=== PATIENT | male | born 1940 | race Caucasian/White ===

== ENCOUNTER → 2018-07-02 | Outpatient (CLI) | payer MEDICARE, BC ==
[2016-12-26 12:50] VITALS: BP 100/62
[~2018-07-02] MED LIST: ALEN70TA3 PO; ASCO500T2 PO; ATOR20TA PO; CRAN500C6 PO; GLUC1TAB69 PO; MULT1TAB52 PO; OMEP20CA9 PO; TEST2.5G5 TD
--- NOTE | 2018-07-02 13:49 | RAD ---
Bilateral knees, 6 views, 07/02/2018: HISTORY: Knee pain AP standing and views of both knees as well as lateral and tangential patellar views were obtained as requested. There is marked narrowing of the knee joint spaces medially with subchondral sclerosis and mild marginal spurring. There is moderate degenerative change at the patellofemoral articulations, worse on the left. No fracture or dislocation is identified. There is a suggestion of a small left joint effusion. Moderate arterial calcifications are present. IMPRESSION: 1. Moderately severe bilateral degenerative changes with dominant involvement of the medial compartments of both knee joints. 2. No acute bony abnormality is detected. Electronically signed by: Larry Zamarripa MD (07/02/2018 1:45 PM) [facility]
== END | disposition home or self-care (01) ==
LOC: DXRAD 13:06
PROVIDERS: ATTEND Orthopaedic Surgery Sports Medicine
DX: M17.0 Bilateral primary osteoarthritis of knee (principal); I10 Essential (primary) hypertension; E78.5 Hyperlipidemia, unspecified; E78.00 Pure hypercholesterolemia, unspecified; I95.9 Hypotension, unspecified; Z90.49 Acquired absence of other specified parts of digestive tract
CPT/HCPCS: 73562

== ENCOUNTER → 2018-12-19 | Outpatient (CLI) | payer MEDICARE, BC ==
[2016-12-26 12:50] VITALS: BP 100/62
[~2018-12-19] MED LIST changes: +IOHEXOL 240 MG/ML 50ML VIAL. ONE; +IOHEXOL 300 MG/ML 75 ML VIAL. IV ONE
[2018-12-19 14:52] LABS: CREATININE 1.2 mg/dL (0.7-1.3); GFR 58.6
--- NOTE | 2018-12-19 16:23 | RAD ---
CT of the abdomen and pelvis with contrast, 12/19/2018: HISTORY: Right-sided abdominal pain Multidetector CT imaging was performed following oral and IV administration of contrast. There is mild linear scarring and/or atelectasis in the lung bases. The gallbladder is surgically absent. No hepatic abnormality is seen. The pancreas is unremarkable. The spleen is of normal size. There is a tiny nonobstructing intrarenal calculus on the right. There is a small cyst in the lower pole of the left kidney. There is a probable cyst in the lower pole the right kidney, however, it is too small to definitively characterize. The kidneys show no evidence of obstruction. Moderate aortoiliac calcific plaquing is present. No abdominal or pelvic adenopathy is seen. The prostate gland is at the upper limits of normal in size. Mild diffuse bladder wall thickening is unchanged since previous study and probably reflects some degree of chronic bladder outlet obstruction. The bowel loops are not dilated. Both inguinal rings are dilated, right greater than left. They both contain fat. No bowel herniation is evident. No free fluid or free air is evident in the abdomen or pelvis. There are moderate multilevel degenerative changes in the spine. There is a slight anterolisthesis at L4-5 due to facet joint arthropathy. IMPRESSION: 1. Chronic findings as described above. 2. No acute abdominal or pelvic abnormality is detected. PQRS Compliance Statement: One or more of the following individualized dose reduction techniques were utilized for this examination: 1. Automated exposure control 2. Adjustment of the mA and/or kV according to patient size 3. Use of iterative reconstruction technique Electronically signed by: Larry Zamarripa MD (12/19/2018 4:18 PM) [facility]
== END | disposition home or self-care (01) ==
LOC: CT 13:50
PROVIDERS: ATTEND Family Medicine
DX: M43.16 Spondylolisthesis, lumbar region (principal); M12.88 Other specific arthropathies, not elsewhere classified, other specified site; N28.1 Cyst of kidney, acquired
CPT/HCPCS: 36415; 74177; 82565; Q9966; Q9967

== ENCOUNTER 2020-05-27 07:01 | Emergency (ER) | payer MEDICARE, BC ==
[~2020-05-27] VITALS: Ht 167.6 cm; Wt 73.3 kg
[~2020-05-27 07:01] MED LIST changes: -ASCO500T2 PO; +ASCO500T4 PO; -IOHEXOL 240 MG/ML 50ML VIAL. ONE; -IOHEXOL 300 MG/ML 75 ML VIAL. IV ONE; +MULT-445 PO; -MULT1TAB52 PO; +OMEP20CA16 PO; -OMEP20CA9 PO; -TEST2.5G5 TD; +TEST2.5G9 TD
--- NOTE | 2020-05-27 07:22 | PHYS DOC ---
Past History Past Medical History: High Cholesterol, Hypertension, Other Past Surgical History: Cholecystectomy, Other Alcohol Use: None Drug Use: None General Adult EDM: Chief Complaint: GROIN PAIN HPI: HPI: Patient is a 79-year-old male presenting to the ED with a chief complaint of left groin pain which started yesterday. Patient denies that there is swelling or redness but states that there is pain that has not able to localize. Patient denies any injury. Patient denies hernia or swelling. Patient also denies dysuria or urinary frequency. Patient does state has a history of prostatitis. Review of Systems: Review of Systems: Constitutional: Denies fever or chills Eyes: Denies change in visual acuity HENT: Denies nasal congestion or sore throat Respiratory: Denies cough or shortness of breath Cardiovascular: Denies chest pain or edema GI: Denies abdominal pain, nausea, vomiting, bloody stools or diarrhea : Denies dysuria, complains of left groin tenderness Musculoskeletal: Denies back pain or joint pain Neurologic: Denies headache, focal weakness or sensory changes Heart Score: Risk Factors: Risk Factors: DM, Current or recent (<one month) smoker, HTN, HLP, family history of CAD, obesity. Risk Scores: Score 0 - 3: 2.5% MACE over next 6 weeks - Discharge Home Score 4 - 6: 20.3% MACE over next 6 weeks - Admit for Clinical Observation Score 7 - 10: 72.7% MACE over next 6 weeks - Early Invasive Strategies Allergies: Allergies: Allergies Coded Allergies Type Severity Reaction Last Updated Verified Penicillins Allergy Intermediate 05/27/20 Yes cinoxacin Allergy Intermediate 05/27/20 Yes Physical Exam: PE: Constitutional: Well developed, well nourished, no acute distress, non-toxic appearance. [] HENT: Normocephalic, atraumatic Eyes: EOMI Neck: Normal range of motion, Supple Cardiovascular:Heart rate regular rhythm Lungs & Thorax: Bilateral breath sounds clear to auscultation [] Abdomen: Bowel sounds normal, soft, no tenderness. No swelling, erythema or hernia seen in the left groin. Patient denies testicular pain Extremities: No tenderness, ROM intact Neurologic: Alert and oriented X 3 EKG: EKG: [] Radiology/Procedures: Radiology/Procedures: [] Course & Med Decision Making: Course & Med Decision Making Pertinent Labs and Imaging studies reviewed. (See chart for details) Ordered labs, UA, CT abdomen pelvis with IV contrast, IV fluids. Dragon Disclaimer: Dragon Disclaimer: This electronic medical record was generated, in whole or in part, using a voice recognition dictation system. Departure Departure: Impression: Primary Impression: Left groin pain Additional Impression: Inguinal hernia Disposition: HOME/RESIDENCE PRIOR TO ADM Condition: STABLE Referrals: NORMAN STAPLETON MD (PCP) Patient Instructions: Groin Strain, Inguinal Hernia, Adult Additional Instructions: Discussed results and plan of care with patient. Patient is instructed to follow up with PCP in one to 2 days. Appropriate discharge instructions given to patient to return to the ED or to seek immediate medical evaluation. Patient is instructed to return to the ED if symptoms worsen or if any concerns. Please also follow up with urology [facility]. Scripts Ondansetron Hcl (ZOFRAN) 4 Mg Tablet 1 TAB PO PRN Q6-8HRS for nausea, #15 TAB Prov: KIERRA MUSTAFA DO 05/27/20 Hydrocodone Bit/Acetaminophen (NORCO 5-325 TABLET) 1 Each Tablet 1 TAB PO Q4-6HRS for Pain, #15 TAB Prov: KIERRA MUSTAFA DO 05/27/20 Justification of Admission: Justification of Admission: Justification of Admission Dx: KIERRA Frazier DO May 27, 2020 07:22
[2020-05-27] MEDS ORDERED: IV NORMAL SALINE 1,000ML 500 ML IV ONE (07:30)
[2020-05-27] MEDS ORDERED: IOHEXOL 300 MG/ML 75 ML VIAL. IV ONE (07:30)
[2020-05-27 07:51] LABS: BASO % 0 % (0-3); EOS # 0.1 x10^3/uL (0.0-0.7); EOS % 1 % (0-3); HEMATOCRIT 37.3 % (39.0-53.0); HEMOGLOBIN 12.3 g/dL (13.0-17.5); LYMPH % 12 % (24-48); MEAN CORPUSCULAR HEMOGLOBIN 31 pg (25-35); MEAN CORPUSCULAR HGB CONC 33 g/dL (31-37); MEAN CORPUSCULAR VOLUME 95 fL (79-100); MONO # 0.7 x10^3/uL (0.0-1.1); MONO % 8 % (0-9); NEUT # 6.4 x10^3uL (1.8-7.7); NEUT % 78 % (31-73); PLATELET COUNT 230 x10^3/uL (140-400); RED BLOOD COUNT 3.93 x10^6/uL (4.30-5.70); RED CELL DISTRIBUTION WIDTH 13.7 % (11.5-14.5); WHITE BLOOD COUNT 8.2 x10^3/uL (4.0-11.0)
[2020-05-27 08:00] LABS: CALCIUM 8.3 mg/dL (8.5-10.1); CREATININE 1.6 mg/dL (0.7-1.3); GFR 41.9; POTASSIUM 4.1 mmol/L (3.5-5.1)
[2020-05-27 08:03] LABS: ALBUMIN 3.6 g/dL (3.4-5.0); ALBUMIN/GLOBULIN RATIO 0.9 (1.0-1.7); TOTAL BILIRUBIN 0.2 mg/dL (0.2-1.0); TOTAL PROTEIN 7.5 g/dL (6.4-8.2)
[2020-05-27 08:27] LABS: BILIRUBIN,URINE NEG (NEG); CLARITY,URINE CLEAR; COLOR,URINE YELLOW; GLUCOSE,URINE NEG (NEG)
[2020-05-27 08:29] LABS: BACTERIA,URINE 0 /HPF (0-FEW); NITRITE,URINE NEG (NEG); SQUAMOUS EPITHELIAL CELL,UR OCC /LPF; UROBILINOGEN,URINE 0.2 mg/dL (0.2 mg/dL); WBC,URINE OCC /HPF (0-4)
--- NOTE | 2020-05-27 08:50 | RAD ---
EXAM: CT Abdomen and Pelvis with IV contrast INDICATION: Reason: left groin pain / Spl. Instructions: / History: TECHNIQUE: Multi-detector row CT images were acquired from the lung bases through the abdomen and pelvis with the use of IV contrast. Sagittal and coronal images were acquired from the transaxial data. All CT scans performed at this facility utilize dose optimization techniques as appropriate to the exam, including the following: Automated exposure control and adjustment of the mA and/or KV according to patient size (this includes techniques or standardized protocols for targeted exams where dose is indication/reason for exam). IV CONTRAST: Administered ORAL CONTRAST: Not administered COMPARISON: 12/19/[address] with IV contrast FINDINGS: LOWER CHEST: Partially imaged nodular densities in the posterior right upper lobe. LIVER: Unremarkable BILIARY SYSTEM: Gallbladder is surgically absent. Bile ducts are not dilated. PANCREAS: Unremarkable SPLEEN: Unremarkable ADRENALS: Unremarkable KIDNEYS & URETERS: Superior pole 3 mm right kidney stone and bilateral renal cortical cysts not requiring any additional follow-up are noted. BLADDER: Mild diffuse urinary bladder wall thickening. No perivesical soft tissue stranding. Incomplete bladder distention. REPRODUCTIVE ORGANS: Unremarkable GASTROINTESTINAL: Rectal fecalith measuring 6.7 x 5.5 cm is present. Normal appendix. The mesentery has a swirled appearance with clockwise rotation of the vessels that is nonspecific but could reflect a nonobstructing midgut malrotation. No signs of acute bowel inflammation, obstruction or evidence of bowel perforation. A few scattered colonic diverticuli are noted. The appendix is normal. MESENTERY/PERITONEUM/RETROPERITONEUM: No free air, mesenteric edema, free fluid or fluid collection. There is a left supraumbilical omental fat containing hernia with a 1.6 cm neck that is slightly larger than before. VASCULAR: Scattered arterial calcifications. LYMPH NODES: No adenopathy OSSEOUS & SOFT TISSUES: Bilateral fat-containing inguinal hernias, right greater than left. Degenerative spondylosis of the lumbar spine, likely resulting in varying degrees of central canal and foraminal stenosis IMPRESSION: No specific findings to explain left groin pain are noted. Patient does have a small fat-containing inguinal hernia and scattered colonic diverticuli but no findings of diverticulitis or incarcerated hernia. Rotation of the mesenteric vessels is nonspecific but could reflect mild nonobstructive malrotation. Electronically signed by: Char Lawrence MD (05/27/2020 8:47 AM) [id number]
[2020-05-27] MEDS ORDERED: ONDANSETRON PF 4 MG/2 ML VIAL. IVP ONE (09:00)
[2020-05-27] MEDS ORDERED: MORPHINE SULFATE 2 MG/ML DISP.SYRIN. IV ONE (09:00)
[2020-05-27] MEDS ORDERED: HYDR-3165 PO (09:06)
[2020-05-27] MEDS ORDERED: ONDA4TAB7 PO (09:06)
[2020-05-27 09:10] VITALS: BP 111/62
== END 2020-05-27 09:10 | disposition home or self-care (01) ==
LOC: ER 07:01
DX: K40.90 Unilateral inguinal hernia, without obstruction or gangrene, not specified as recurrent (principal); R10.32 Left lower quadrant pain; E78.00 Pure hypercholesterolemia, unspecified; I10 Essential (primary) hypertension; Z90.49 Acquired absence of other specified parts of digestive tract; Z88.0 Allergy status to penicillin; Z88.1 Allergy status to other antibiotic agents
CPT/HCPCS: 36415; 74177; 80053; 81001; 85025; 96374; 96375; 99285; J2270; J2405; J7030; Q9967

== ENCOUNTER → 2020-11-29 | Outpatient (CLI) | payer MEDICARE, BC ==
[~2020-11-29] MED LIST changes: +HYDR-3165 PO; +ONDA4TAB7 PO
--- NOTE | 2020-11-29 14:32 | RAD ---
EXAM: DUAL ENERGY X-RAY ABSORPTIOMETRY (DEXA). HISTORY: Postmenopausal screening. FINDINGS: The lowest measured T-score is -3.4 in the right hip, based on a bone mineral density of 0. 567 g/cm^2. Refer to the worksheets for full detail. No comparison examinations are available. IMPRESSION: 1. Osteoporosis. Bone mineral density yields a T-score of -2.5 or less. Fracture risk is high. 2. FRAX report: Not calculated. METHODOLOGY: Dual energy x-ray absorptiometry was performed to measure bone mineral density. The foll owing analysis is based on the 2019 Official Positions of the International Society for Clinical Dens itometry: Measurements of the hips and the average of L1-L4 are preferred. When the spine and/or hip cannot be feasibly measured or interpreted, or in the setting of hyperparathyroidism, distal radial bone minera l density may be measured. The lumbar spine T-score is based on the average bone mineral density of L1-L4. In the setting of art ifact or anatomic abnormality, some lumbar levels may be excluded, and the remaining levels used for calculation. A single lumbar level is not used for diagnosis, and if only a single level is available for assessment, another anatomic site will be used to assign a diagnosis. The hip T-score is based on the bone mineral density measurement of the femoral neck or total proxima l femur of either side, whichever is lowest. Bilateral mean values are not used for diagnosis. The forearm T-score is derived from 33% of the distal radius of the nondominant forearm. Electronically signed by: Tia Elias MD (11/29/2020 2:30 PM) [id number]
== END ==
LOC: DXRAD 12:41
PROVIDERS: ATTEND Family Medicine
DX: M81.0 Age-related osteoporosis without current pathological fracture (principal)
CPT/HCPCS: 77080

== ENCOUNTER 2021-09-15 22:45 | Emergency (ER) | payer MEDICARE, BC ==
[~2021-09-15] VITALS: Ht 165.1 cm; Wt 73.3 kg
--- NOTE | 2021-09-15 23:48 | PHYS DOC ---
Past History Past Medical History: High Cholesterol, Hypertension, Kidney Stones, Other Additional Past Medical Histor: OSTEOPOROSIS Past Medical History Enlarged prostate Past Surgical History: Cholecystectomy, Other Additional Past Surgical Histo: vasectomy; prostate evacuation; bowel blockage; cataract Alcohol Use: None Drug Use: None General Adult EDM: Chief Complaint: ABDOMINAL PAIN HPI: HPI: ".. I ve been hurting down here on the right last few hours.. it not gone away... " " Something not right...".. " It feels.. like it is stabbing me..." Patient is a 80 year old male who presents with Rt. Lower abdomen pain. Last ate at 1700 hrs. no history of bad food intake. He did have a couple episodes of diarrhea. No history of kidney stones. Does have previous history of cardiac dysrhythmia. Has had previous cholecystectomy, surgery for bowel obstruction and enlarged prostate. Patient follows with [facility] for urology and cardiology. Patient normally healthy. No recent travel. No specific ill contacts. No history of trauma. Pt. follows with Dr. Stapleton as a primary.. Review of Systems: Review of Systems: Constitutional: Denies fever or chills Eyes: Denies change in visual acuity HENT: Denies nasal congestion or sore throat Respiratory: Denies cough or shortness of breath Cardiovascular: Denies chest pain or edema GI: Complains of right lower abdominal pain, nausea, and diarrhea : Denies dysuria Musculoskeletal: Complains of right flank back pain. History of chronic joint pain Integument: Denies rash Neurologic: Denies headache, focal weakness or sensory changes Endocrine: Denies polyuria or polydipsia Lymphatic: Denies swollen glands Psychiatric: Denies depression or anxiety Family History: Family History: Noncontributory to presentation. Current Medications: Current Meds: See nursing for home meds Allergies: Allergies: Allergies Coded Allergies Type Severity Reaction Last Updated Verified Penicillins Allergy Intermediate 05/27/20 Yes cinoxacin Allergy Intermediate 05/27/20 Yes Physical Exam: PE: Constitutional: , well nourished, in acute distress, non-toxic appearance. [] HENT: Normocephalic, atraumatic, bilateral external ears normal, oropharynx moist, no oral exudates, nose normal. [] Eyes: PERRLA, EOMI, conjunctiva normal, no discharge. Irregular iris. ( Hx. of surgery) Neck: Normal range of motion, no tenderness, supple, no stridor. [] Cardiovascular:Heart rate r regular rhythm, no murmur [] PMI to left. Monitor bedside shows frequent PVCs but a sinus rhythm. Lungs & Thorax: Bilateral breath sounds equal and apex on auscultation [] Abdomen: Bowel sounds decreased, soft, right lower quadrant tenderness, no masses, no pulsatile masses. Mild distention. Rebound to right lower quadrant. Right flank pain. Old surgery scars. Testicles descended normal male anatomy. Nontender. Declined rectal exam at this time. Skin: Warm, dry, no erythema, no rash. [] Back: No tenderness, right flank CVA tenderness. [] Extremities: No tenderness, no cyanosis, no clubbing, ROM intact, no edema. Mild psoas sign on right. Neurologic: Alert and oriented X 3, normal motor function, normal sensory function, no focal deficits noted. [] Psychologic: Affect anxious judgement normal, mood normal. [] EKG: EKG: My interpretation EKG shows a sinus rhythm at 82 bpm. Does have PVCs and prolonged [place] interval at 244 ms. Left fascicular block and interventricular block. This is an abnormal EKG. But no findings of acute STEMI of contralateral changes. Time of this EKG is 005 9 minutes [] Radiology/Procedures: Radiology/Procedures: [place] [address] IMAGING REPORT Signed PATIENT: ANGELIKA BANDA ACCOUNT: [id number] : 1940 LOCATION: ER AGE: 80 SEX: M EXAM STATUS: REG ER ORD. PHYSICIAN: ANTONIO JOE MD REASON: pain, OMNI 300, 60ml & OMNI 240, 30ml PROCEDURE: CT ABD PELV W/ORAL&IV CONTRAST CT ABDOMEN+PELVIS W History: Reason: pain, OMNI 300, 60ml OMNI 240, 30ml / Spl. Instructions: / History: Technique: After the administration of intravenous contrast, CT imaging was performed of the abdomen and pelvis. Multiplanar images are reviewed. Exposure: One or more of the following individualized dose reduction techniques were utilized for this examination: 1. Automated exposure control 2. Adjustment of the mA and/or kV according to patient size 3. Use of iterative reconstruction technique. Comparison: May 27, 2020 December 19, 2018 Findings: Lower chest: Scattered linear atelectasis. 2 mm right middle lobe pulmonary nodule (series 2 image 1), unchanged compared to 2019 and likely benign given stability over time. Small hiatal hernia. Abdomen and pelvis: Tiny left hepatic lobe hypodensity, unchanged and too small to further characterize. Prior cholecystectomy. Biliary ductal dilatation within normal limits for post cholecystectomy state. The spleen, adrenal glands and pancreas are unremarkable. Increased right perinephric stranding. Mild right hydronephrosis. 5 mm right distal ureteral calculus (series 2 image 55) decompressed urinary bladder. No ureteral calculus. No left hydronephrosis. Unchanged left nonspecific perinephric stranding. Bilateral renal hypodensities, unchanged likely cysts. Colonic diverticulosis. Normal appendix. No evidence of bowel obstruction. Oral contrast opacifies to the level of the distal small bowel. No pathologic lymphadenopathy. No ascites. Bilateral fat-containing inguinal hernias, right greater than left. Left anterior abdominal wall fat-containing hernia, increased compared to prior. There is 3.8 x 1.9 cm with fascial defect measuring 1.4 cm. Atheromatous plaque throughout the nonaneurysmal abdominal aorta and branch v essels. Bones: Grade 1 anterolisthesis L4 on L5 and L5 on S1. Advanced facet arthropathy. Moderate degenerative disc changes most prominent L2-L3 and L3-L4. L4-5 and L5-S1 canal narrowing. Multilevel neuroforaminal narrowing. Impression: 1. 5 mm right distal ureteral obstructing calculus contributing to mild right hydronephrosis and perinephric edema. 2. Advanced lumbar spondylosis with canal and neuroforaminal narrowing most prominent L4-5 and L5-S1. Electronically signed by: Chris Haines DO (09/16/2021 2:08 AM) [facility] DICTATED AND SIGNED BY: CHRIS HAINES DO DATE: 09/16/21200 CC: NORMAN STAPLETON MD; ANTONIO JOE MD ~MTH0 0 [][address] [address] IMAGING REPORT Signed PATIENT: ANGELIKA BANDA ACCOUNT: [id number] : 1940 LOCATION: ER AGE: 80 SEX: M EXAM STATUS: REG ER ORD. PHYSICIAN: ANTONIO JOE MD REASON: pain PROCEDURE: ACUTE ABDOMEN SERIES XR ABDOMEN COMP ACUTE History: Reason: pain / Spl. Instructions: / History: Technique: Upright and supine views of the abdomen. Comparison: None. Findings: Mild bibasilar linear atelectasis. No pleural effusion. No pneumothorax. Normal heart size. No pneumoperitoneum. Minimal small bowel gas. Air and stool throughout the colon. Mild colonic stool burden. Surgical clips right upper quadrant. Multilevel lumbar spondylosis with rightward curvature. Vascular calcifications. Impression: 1. Nonobstructed bowel gas pattern. Electronically signed by: Chris Haines DO (09/16/2021 12:37 AM) [facility] DICTATED AND SIGNED BY: CHRIS HAINES DO DATE: 09/16/21 0036 CC: NORMAN STAPLETON MD; ANTONIO JOE MD ~MTH0 0 Heart Score: C/O Chest Pain: No HEART Score for Chest Pain: HEART Score for Chest Pain Response (Comments) Value History Moderately Suspicious 1 ECG Nonspecific Repolarizatio 1 Age > 65 2 Risk Factors 1 or 2 Risk Factors 1 Troponin < Normal Limit 0 Total 5 Risk Factors: Risk Factors: DM, Current or recent (<one month) smoker, HTN, HLP, family history of CAD, obesity. Risk Scores: Score 0 - 3: 2.5% MACE over next 6 weeks - Discharge Home Score 4 - 6: 20.3% MACE over next 6 weeks - Admit for Clinical Observation Score 7 - 10: 72.7% MACE over next 6 weeks - Early Invasive Strategies Course & Med Decision Making: Course & Med Decision Making Pertinent Labs and Imaging studies reviewed. (See chart for details) Patient push fluids. Take Flomax daily until stone passed and be aware that this can cause low blood pressure. Dizziness is a frequent side effect. Take Vicoprofen for severe pain. Take Tylenol and ibuprofen for maintenance pain. Take Zofran 8 mg up to 4 times a day for active nausea and vomiting. Follow-up with urology. Follow-up with primary. Keep follow-up with cardiology. Take Keflex 500 mg 3 times a day. Follow-up urine cultures. Impression: 1. Abdomen Pain 2. Mild Leukocytosis 12. 6 3. Anemia 12.0 Hg. 4. Distal Rt. kidney stone 5. Frequent PVCs and dysrhythmia [] Dragon Disclaimer: Dragon Disclaimer: This electronic medical record was generated, in whole or in part, using a voice recognition dictation system. Departure Departure: Referrals: NORMAN STAPLETON MD (PCP) Scripts Tamsulosin Hcl (FLOMAX) 0.4 Mg Cap.er.24h 0.4 MG PO DAILY for kidney stone, #30 CAP.SR Prov: ANTONIO JOE MD 09/16/21 Hydrocodone/Ibuprofen (HYDROCODONE-IBUPROFEN 7.5-200 ) 1 Each Tablet 1 TAB PO PRN Q6HRS PRN for PAIN, #30 TAB 0 Refills Prov: ANTONIO JOE MD 09/16/21 Ondansetron Hcl (ZOFRAN) 4 Mg Tablet 8 MG PO QID for n/v, #30 TAB Prov: ANTONIO JOE MD 09/16/21 Cephalexin (KEFLEX) 500 Mg Capsule 1 CAP PO TID for uti, #30 CAP Prov: ANTONIO JOE MD 09/16/21 Dragon Disclaimer This chart was dictated in whole or in part using Voice Recognition software in a busy, high-work load, and often noisy Emergency Department environment. It may contain unintended and wholly unrecognized errors or omissions. ANTONIO JOE MD Sep 15, 2021 23:48
[2021-09-16] MEDS ORDERED: IV RINGERS SOLUTION,LACTATED 1,000 ML IV SCH
[2021-09-16] MEDS ORDERED: ONDANSETRON PF 4 MG/2 ML VIAL. IVP ONE
[2021-09-16] MEDS ORDERED: FAMOTIDINE 20 MG/2 ML VIAL IVP ONE
[2021-09-16] MEDS ORDERED: IOHEXOL 300 MG/ML 75 ML VIAL. IV ONE (00:15)
[2021-09-16] MEDS ORDERED: IOHEXOL 240 MG/ML 50ML VIAL. PO ONE (00:15)
[2021-09-16] MEDS ORDERED: KETOROLAC 15 MG/ML VIAL. IVP ONE (00:15)
[2021-09-16] MEDS ORDERED: CONTRAST GIVEN. MC PRN (00:15)
--- NOTE | 2021-09-16 00:39 | RAD ---
XR ABDOMEN COMP ACUTE History: Reason: pain / Spl. Instructions: / History: Technique: Upright and supine views of the abdomen. Comparison: None. Findings: Mild bibasilar linear atelectasis. No pleural effusion. No pneumothorax. Normal heart size. No pneumo peritoneum. Minimal small bowel gas. Air and stool throughout the colon. Mild colonic stool burden. S urgical clips right upper quadrant. Multilevel lumbar spondylosis with rightward curvature. Vascular calcifications. Impression: 1. Nonobstructed bowel gas pattern. Electronically signed by: Chris Haines DO (09/16/2021 12:37 AM) [facility]
[2021-09-16 00:44] LABS: CALCIUM 9.1 mg/dL (8.5-10.1); CREATININE 1.2 mg/dL (0.7-1.3); GFR 58.3; POTASSIUM 3.7 mmol/L (3.5-5.1)
[2021-09-16 00:47] LABS: BASO % 0 % (0-3); EOS # 0.1 x10^3/uL (0.0-0.7); EOS % 1 % (0-3); LYMPH # 1.2 x10^3/uL (1.0-4.8); LYMPH % 10 % (24-48); MEAN CORPUSCULAR HEMOGLOBIN 31 pg (25-35); MEAN CORPUSCULAR HGB CONC 33 g/dL (31-37); MEAN CORPUSCULAR VOLUME 96 fL (79-100); MONO # 1.3 x10^3/uL (0.0-1.1); MONO % 10 % (0-9); NEUT % 79 % (31-73); PLATELET COUNT 279 x10^3/uL (140-400); RED BLOOD COUNT 3.85 x10^6/uL (4.30-5.70); WHITE BLOOD COUNT 12.6 x10^3/uL (4.0-11.0)
[2021-09-16 00:50] LABS: ALBUMIN 3.5 g/dL (3.4-5.0); DIRECT BILIRUBIN 0.1 mg/dL (0.0-0.2); TOTAL BILIRUBIN 0.2 mg/dL (0.2-1.0); TOTAL PROTEIN 7.8 g/dL (6.4-8.2)
--- NOTE | 2021-09-16 01:03 | EKG ---
[facility] ED [facility] [address] [place] [id number] Test Date: 2021-09-16 Test Time: 00:00:59 Pat Name: ANGELIKA BANDA Department: Room: Gender: M Cloth Checker: JONNY : 1940 Requested By: ANTONIO JOE Order Number: [id number] Reading MD: Missael Chow MD Measurements Intervals [place] Rate: 82 P: 38 [place]: 244 QRS: -66 QRSD: 130 T: 35 QT: 422 QTc: 496 Interpretive Statements SINUS RHYTHM PVC LAFB Electronically Signed On 09-18-2021 10:37:01 CDT by Missael Chow MD
[2021-09-16] MEDS ORDERED: cefTRIAXone SODIUM 1 GM VIAL ONE (01:46)
[2021-09-16] MEDS ORDERED: IV NORMAL SALINE 50ML 50 ML ONE (01:46)
--- NOTE | 2021-09-16 02:11 | RAD ---
CT ABDOMEN+PELVIS W History: Reason: pain, OMNI 300, 60ml OMNI 240, 30ml / Spl. Instructions: / History: Technique: After the administration of intravenous contrast, CT imaging was performed of the abdomen and pelvis. Multiplanar images are reviewed. Exposure: One or more of the following individualized dose reduction techniques were utilized for thi s examination: 1. Automated exposure control 2. Adjustment of the mA and/or kV according to patient size 3. Use of iterative reconstruction technique. Comparison: May 27, 2020 December 19, 2018 Findings: Lower chest: Scattered linear atelectasis. 2 mm right middle lobe pulmonary nodule (series 2 image 1) , unchanged compared to 2019 and likely benign given stability over time. Small hiatal hernia. Abdomen and pelvis: Tiny left hepatic lobe hypodensity, unchanged and too small to further characteri ze. Prior cholecystectomy. Biliary ductal dilatation within normal limits for post cholecystectomy st ate. The spleen, adrenal glands and pancreas are unremarkable. Increased right perinephric stranding. Mild right hydronephrosis. 5 mm right distal ureteral calculus (series 2 image 55) decompressed urinary bladder. No ureteral calculus. No left hydronephrosis. Unch anged left nonspecific perinephric stranding. Bilateral renal hypodensities, unchanged likely cysts. Colonic diverticulosis. Normal appendix. No evidence of bowel obstruction. Oral contrast opacifies to the level of the distal small bowel. No pathologic lymphadenopathy. No ascites. Bilateral fat-contai agustin inguinal hernias, right greater than left. Left anterior abdominal wall fat-containing hernia, i ncreased compared to prior. There is 3.8 x 1.9 cm with fascial defect measuring 1.4 cm. Atheromatous plaque throughout the nonaneurysmal abdominal aorta and branch vessels. Bones: Grade 1 anterolisthesis L4 on L5 and L5 on S1. Advanced facet arthropathy. Moderate degenerati ve disc changes most prominent L2-L3 and L3-L4. L4-5 and L5-S1 canal narrowing. Multilevel neuroforam inal narrowing. Impression: 1. 5 mm right distal ureteral obstructing calculus contributing to mild right hydronephrosis and per inephric edema. 2. Advanced lumbar spondylosis with canal and neuroforaminal narrowing most prominent L4-5 and L5-S1 . Electronically signed by: Chris Haines DO (09/16/2021 2:08 AM) [facility] [place]
[2021-09-16] MEDS ORDERED: ONDA4TAB7 PO (02:23)
[2021-09-16] MEDS ORDERED: HYDR-1179 PO ×2 (02:23→02:25)
[2021-09-16] MEDS ORDERED: CEPH500C PO (02:23)
[2021-09-16] MEDS ORDERED: TAMSULOSIN 0.4 MG CAP.ER.24H. PO ONE (02:30)
[2021-09-16 02:52] VITALS: BP 117/77
[2021-09-16] MEDS ORDERED: TAMS0.4C97 PO (02:56)
[2021-09-16 03:12] LABS: CLARITY,URINE CLEAR; COLOR,URINE YELLOW
[2021-09-16 03:13] LABS: AMORPHOUS SEDIMENT,UR PRESENT /HPF; BACTERIA,URINE FEW /HPF (0-FEW); BILIRUBIN,URINE NEG (NEG); GLUCOSE,URINE NEG (NEG); NITRITE,URINE NEG (NEG); SQUAMOUS EPITHELIAL CELL,UR OCC /LPF; UROBILINOGEN,URINE 0.2 mg/dL (0.2 mg/dL); WBC,URINE 0 /HPF (0-4)
[2021-09-16 03:26] LABS: BARBITURATES NEG (NEG); BENZODIAZEPINES NEG (NEG); CANNABINOIDS NEG (NEG); COCAINE NEG (NEG); METHADONE NEG (NEG); OPIATES NEG (NEG); PHENCYCLIDINE NEG (NEG)
[2021-09-16 03:32] LABS: AMPHETAMINE/METHAMPHETAMINE NEG (NEG)
== END 2021-09-16 02:57 | disposition home or self-care (01) ==
LOC: ER 22:45
DX: N20.0 Calculus of kidney (principal); D64.9 Anemia, unspecified; D72.829 Elevated white blood cell count, unspecified; E78.5 Hyperlipidemia, unspecified; I10 Essential (primary) hypertension; Z90.49 Acquired absence of other specified parts of digestive tract; Z88.0 Allergy status to penicillin
CPT/HCPCS: 36415; 74022; 74177; 80048; 80076; 80307; 81001; 82150; 82550; 83690; 84484; 85025; 85730; 93005; 96361; 96365; 96375; 99285; J0696; J1885; J2405; J3490; J7120; Q9966; Q9967

== ENCOUNTER → 2021-10-30 | Outpatient (CLI) | payer MEDICARE, BC ==
[~2021-10-30] MED LIST changes: +CEPH500C PO; +HYDR-1179 PO; +TAMS0.4C97 PO
== END ==
LOC: LAB 11:19
PROVIDERS: ATTEND Optometrist
DX: H46.9 Unspecified optic neuritis (principal)
CPT/HCPCS: 36415; 85651; 86140

== ENCOUNTER → 2022-03-15 | Outpatient (CLI) | payer MEDICARE, BC ==
--- NOTE | 2022-03-15 15:53 | RAD ---
DXA BONE DENSITY AXIAL History: Osteoporosis Comparison: 11/29/2020 TECHNIQUE: Dual energy x-ray absorptiometry of the lumbar spine and right hip was performed. T-score of average bone mineral density based was calculated based on standard deviations above or below the expected young adult normal value. Diagnostic definitions were established by the [employer] z[employer]. FINDINGS: The average bone mineral density associated with L1-L4 is 1.279 g/cm^2, corresponding with a T-score of 0.5. This is an increase of 6.5 percent from 2020 baseline exam. The average total bone mineral density associated with right hip is 0.561 g/cm^2, corresponding with a T-score of -3.4. This is a decrease of 1.1 percent from 2020 patient exam. Refer to the worksheets for full detail. IMPRESSION: 1. Osteoporosis. Average bone mineral density yields a T-score of -2.5 or less. Fracture risk is high . Electronically signed by: Kelby Parsons MD (03/15/2022 3:50 PM) [id number]
== END ==
LOC: RAD 14:08
PROVIDERS: ATTEND Family Medicine
DX: M81.0 Age-related osteoporosis without current pathological fracture (principal)
CPT/HCPCS: 77080